=== PATIENT | female | born 1985 | race Two or more races ===

== ENCOUNTER 2025-03-25 08:34 | Emergency (ER) | payer OTHER ==
[~2025-03-25] VITALS: Ht 160 cm; Wt 73.0 kg
[2025-03-25] MEDS ORDERED: HORIZANT300 MG PO (09:07)
[2025-03-25] MEDS ORDERED: NURTEC ODT75 MG PO (09:07)
[2025-03-25] MEDS ORDERED: FAMOTIDINE/PF 20 MG/2 ML VIAL ONE (09:40)
[2025-03-25] MEDS ORDERED: ONDANSETRON HCL 2 MG/ML VIAL ONE (09:40)
[2025-03-25] MEDS ORDERED: FAMOTIDINE/PF 20 MG/2 ML VIAL IV ONE (09:45)
[2025-03-25] MEDS ORDERED: ONDANSETRON HCL 2 MG/ML VIAL IV ONE (09:45)
[2025-03-25] MEDS ORDERED: 0.9 % SODIUM CHLORIDE 1,000 ML IV ONE (09:45)
[2025-03-25 10:28] LABS: BASO % 0.6 % (0.1-1.2); EOS # 0.06 (0.04-0.54); EOS % 0.8 % (0.7-7.0); LYMPH # 1.94 (1.18-3.74); LYMPH % 24.6 % (19.3-53.1); MEAN PLATELET VOLUME 10.50 fl (9.4-12.4); MONO # 1.08 (0.24-0.82); NEUT # 4.73 (1.56-6.13); NEUT % 59.9 % (34.0-71.1); RED CELL DISTRIBUTION WIDTH 13.9 % (11.6-14.4)
[2025-03-25 10:33] LABS: MONO % 13.7 % (4.7-12.5)
[2025-03-25 10:55] LABS: INR 0.98
[2025-03-25 11:23] LABS: ALT/SGPT 31.0 U/L (12-78); AST/SGOT 20.0 U/L (15-37); BILIRUBIN TOTAL 0.46 mg/dL (0.3-1.2); BUN CREA RATIO 14.0 (7.0-25.0); CREATININE SERUM 0.74 mg/dL (0.55-1.02); GFR 88.31; GLOBULINA 4.0 G/DL (2.4-3.5); GLUCOSE FASTING 82.0 mg/dL (65-100); OSMOLALITY SERUM 278.0 MOSM/KG (275-295)
[2025-03-25] MEDS ORDERED: NA PHOS,M-B/NA PHOS,DI-BA 1 BOTTLE ENEMA RECTAL ONE (13:45)
[2025-03-25] MEDS ORDERED: ENULOSE10 GM/15 M PO (15:50)
== END 2025-03-25 16:47 | disposition home or self-care (01) ==
LOC: ER 08:35
PROVIDERS: General Practice
DX: K59.00 Constipation, unspecified (principal); D25.9 Leiomyoma of uterus, unspecified; N20.0 Calculus of kidney